=== PATIENT | female | born 1995 | race American Indian/Alaskan Native ===

== ENCOUNTER 2018-09-24 15:38 | Emergency (ER) | payer BC ==
[2018-09-24 17:39] VITALS: BP 101/65
[2018-09-24 17:46] LABS: HCG Qualitative,Urine Negative (Negative)
[2018-09-24] MEDS ORDERED: AUGMENTIN 875 MG PO ONE (18:16)
[2018-09-24] MEDS ORDERED: NORCO 5/325 PO STA (18:16)
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
[2018-09-24] MEDS ORDERED: TRIPLE ANTIBIOTIC TP STA (18:17)
--- NOTE | 2018-09-24 19:42 | XRay Report ---
FINAL REPORT EXAM: XR HAND 2V RT HISTORY: PAIN AFTER HITTING SOMETHING upt TECHNIQUE: 3 views right hand PRIORS: None. FINDINGS: No fracture is identified. No dislocation seen. Joint spaces are within normal limits. No erosive bon y change identified. Carpal bones maintain normal alignment. Distal radius and ulna are intact. No r adiopaque foreign bodies seen. IMPRESSION: Negative hand series
== END 2018-09-24 19:36 | disposition home or self-care (01) ==
LOC: ED 15:38
DX: S60.511A Abrasion of right hand, initial encounter (principal); L03.113 Cellulitis of right upper limb; W22.8XXA Striking against or struck by other objects, initial encounter; Y93.89 Activity, other specified; Y92.89 Other specified places as the place of occurrence of the external cause; Y99.8 Other external cause status
CPT/HCPCS: 81025; 99284; A6250